=== PATIENT | female | born 1955 | race Caucasian/White ===

== ENCOUNTER 2017-09-05 20:28 | Emergency (ER) | payer MEDICARE, OTHER ==
[2017-09-05 21:22] LABS: CHLORIDE,CL 101 mmol/L (101-111); SODIUM,NA 140 mmol/L (135-145)
[2017-09-05] MEDS ORDERED: HYDROmorphone 1 MG/ML Syringe IVPUSH ONE (21:34)
[2017-09-05] MEDS ORDERED: Iopamidol 755 Mg/ML 100 ML Bottle IVPUSH ONE (21:34)
[2017-09-05] MEDS ORDERED: LORazepam 2 MG/ML Syringe IM ONE (21:37)
[2017-09-05 23:08] VITALS: BP 119/80
--- NOTE | 2017-09-05 23:20 | EDM.PDOC ---
ED HPI GENERAL MEDICAL PROBLEM - General Chief Complaint: Chest Pain Stated Complaint: CHEST PAIN. IN BY AMB Time Seen by Provider: 09/05/17 20:35 Source of Information: Reports: Patient, EMS History Limitations: Reports: No Limitations - History of Present Illness INITIAL COMMENTS - FREE TEXT/NARRATIVE: ED via [facility] with c/o severe back pain radiating to anterior chest. Notes back pain for past week and taking more pain medication than had been in few week prior. Patient hx spinal fusion T4-L1 in May. Denies SOB. no fever or chills. States today she was in [place] shopping all day and pain worsened while fixing supper. Did take 5mg Valim and 6 mg Dilaudid with out relief. Given nitro in ambulance without change in sx. Duration: Day(s):, Getting Worse Location: Reports: Back, Upper Extremity, Right Quality: Reports: Ache, Sharp Severity: Severe Worsens with: Reports: Breathing, Movement Chest Pain Score (Numeric/FACES): 6 - Related Data Allergies Allergy/AdvReac Type Severity Reaction Status Date / Time fenofibrate nanocrystallized Allergy Jaundice Verified 09/05/17 20:43 [From Tricor] fenofibrate,micronized Allergy Jaundice Verified 09/05/17 20:43 [From Tricor] indomethacin [From Indocin] Allergy Nausea and Verified 09/05/17 20:43 Vomiting indomethacin sodium Allergy Nausea and Verified 09/05/17 20:43 [From Indocin] Vomiting morphine Allergy Other Verified 09/05/17 20:43 nickel Allergy Rash Verified 09/05/17 20:43 paroxetine HCl [From Paxil] Allergy Rash Verified 09/05/17 20:43 Penicillins Allergy Hives Verified 09/05/17 20:43 phenobarbital Allergy Hives Verified 09/05/17 20:43 venlafaxine HCl Allergy Hypertensio Verified 09/05/17 20:43 [From Effexor] n Home Meds: Home Meds DULoxetine [Cymbalta] 60 mg PO DAILY 02/01/14 [History] Furosemide [Furosemide] 20 mg PO DAILY 02/01/14 [History] Gabapentin [Gabapentin] 600 mg PO TID 02/01/14 [History] Rosuvastatin Calcium [Crestor] 5 mg PO DAILY 02/01/14 [History] Acetaminophen [Acetaminophen Extra Strength] 1,000 mg PO DAILY MDD 3000 MG 10/06 [History] Aspirin [Halfprin] 81 mg PO DAILY 10/06/16 [History] Calcium Carbonate/Vitamin D3 [Calcium 500 + Vit D 400] 1 tab PO DAILY 10/06/16 [ History] Diazepam [Diazepam] 5 mg PO Q6H PRN 10/06/16 [History] Flaxseed Oil 1,000 mg PO DAILY 10/06/16 [History] HYDROmorphone [Dilaudid] 2 mg PO Q3H PRN 10/06/16 [History] Multivitamin [Multi-Day Vitamins] 1 tab PO DAILY 10/06/16 [History] Polyethylene Glycol 3350 [MiraLAX] 1 dose PO DAILY 10/06/16 [History] fentaNYL [Fentanyl] 1 patch TRDERM ASDIRECTED 10/06/16 [History] Past Medical History HEENT History: Reports: Impaired Vision Cardiovascular History: Reports: High Cholesterol Respiratory History: Reports: None Gastrointestinal History: Reports: Chronic Constipation Genitourinary History: Reports: Renal Calculus 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 Neurological History: Reports: Neuropathy, Peripheral, Seizure Psychiatric History: Reports: Anxiety, Depression Endocrine/Metabolic History: Reports: Obesity/BMI 30+ Hematologic History: Reports: None Immunologic History: Reports: None Oncologic (Cancer) History: Reports: None Dermatologic History: Reports: None - Infectious Disease History Infectious Disease History: Reports: Chicken Pox, Measles, Mumps - Past Surgical History Head Surgeries/Procedures: Reports: None Cardiovascular Surgical History: Reports: Other (See Below) Respiratory Surgical History: Reports: None GI Surgical History: Reports: Appendectomy, Colonoscopy, Hernia, Inguinal Female Surgical History: Reports: Hysterectomy, Salpingo-Oophorectomy Endocrine Surgical History: Reports: None Neurological Surgical History: Reports: Lumbar Spine, Spinal Fusion, Other (See Below) Musculoskeletal Surgical History: Reports: Carpal Tunnel, Knee Replacement, Other (See Below) Oncologic Surgical History: Reports: None Dermatological Surgical History: Reports: None Social & Family History - Family History Family Medical History: Noncontributory - Tobacco Use Smoking Status *Q: Never Smoker Used Tobacco, but Quit: No Second Hand Smoke Exposure: No - Caffeine Use Caffeine Use: Reports: Energy Drinks, Soda Other Caffeine Use: 2-3 CUPS AVERAGE DAILY - Alcohol Use Days Per Week of Alcohol Use: 0 - Recreational Drug Use Recreational Drug Use: No Drug Use in Last 12 Months: No ED ROS GENERAL - Review of Systems Review Of Systems: See Below Constitutional: Denies: Fever, Chills HEENT: Reports: No Symptoms Respiratory: Denies: Shortness of Breath Cardiovascular: Reports: Chest Pain. Denies: Dyspnea on Exertion Endocrine: Reports: No Symptoms GI/Abdominal: Reports: No Symptoms : Reports: No Symptoms Musculoskeletal: Reports: Shoulder Pain (right), Arm Pain (right), Back Pain Skin: Reports: No Symptoms Neurological: Reports: No Symptoms ED EXAM, GENERAL - Physical Exam Exam: See Below Exam Limited By: No Limitations General Appearance: Alert, Mild Distress (talkative but grimaces only with movement) Eye Exam: Bilateral Eye: EOMI Ears: Normal External Exam Nose: Normal Inspection Throat/Mouth: Normal Inspection Head: Atraumatic, Normocephalic, Other (alopecia) Neck: Normal Inspection, Full Range of Motion Respiratory/Chest: No Respiratory Distress, Lungs Clear, Normal Breath Sounds, Splinting Cardiovascular: Normal Peripheral Pulses, Regular Rate, Rhythm. No: No Edema ( trace pedal) GI/Abdominal: Normal Bowel Sounds, Soft Back Exam: Decreased Range of Motion, Muscle Spasm (right trapezius), Paraspinal Tenderness (upper) Extremities: Normal Inspection, Normal Range of Motion Neurological: Alert, Oriented, Normal Cognition, No Motor/Sensory Deficits Skin Exam: Warm, Dry, Intact, Wound/Incision (midline incision upper thoracic to low lumbar, healing intact) Course - Vital Signs Last Recorded V/S: Last Vital Signs Temp 98.9 F 09/05/17 22:30 Pulse 80 09/05/17 23:08 Resp 14 09/05/17 23:08 BP 119/80 09/05/17 23:08 Pulse Ox 98 09/05/17 23:08 - Orders/Labs/Meds Orders: Active Orders 24 hr Category Date Time Status EKG 12 Lead [EKG Documentation Completion] [RC] URGENT Care 09/05/17 20:58 Active CULTURE BLOOD [BC] Stat Lab 09/05/17 20:50 Received Labs: Laboratory Tests 09/05/17 09/05/17 09/05/17 Range/Units 20:50 20:50 20:50 WBC 9.0 (5.0-10.0) 10^3/uL RBC 4.21 (4.2-5.4) 10^6/uL Hgb 12.1 (12.0-16.0) g/dL Hct 37.6 (37.0-47.0) % MCV 89.3 (80-100) fL MCH 28.7 (27.0-34.0) pg MCHC 32.2 L (33.0-35.0) g/dL Plt Count 323 (150-450) 10^3/uL Neut % (Auto) 62.4 (42.2-75.2) % Lymph % (Auto) 26.8 (20.5-50.1) % Faulk % (Auto) 8.5 H (2-8) % Eos % (Auto) 1.9 (1.0-3.0) % Baso % (Auto) 0.4 (0.0-1.0) % D-Dimer, Quantitative (0-400) ng/mL Sodium 140 (135-145) mmol/L Potassium 3.7 (3.6-5.0) mmol/L Chloride 101 (101-111) mmol/L Carbon Dioxide 28.0 (21.0-31.0) mmol/L Anion Gap 14.7 BUN 15 (7-18) mg/dL Creatinine 0.8 (0.6-1.3) mg/dL Est Cr Clr Drug Dosing 61.35 mL/min Estimated GFR (MDRD) > 60 BUN/Creatinine Ratio 18.75 Glucose 92 (74-105) mg/dL Lactic Acid 1.1 (0.5-2.2) mmol/L Calcium 8.8 (8.4-10.2) mg/dl Total Bilirubin 0.6 (0.2-1.0) mg/dL AST 30 (10-42) IU/L ALT 18 (10-60) IU/L Alkaline Phosphatase 70 (42-121) IU/L CK-MB (CK-2) (0.4-4.7) ng/mL Troponin I < 0.02 (0.00-0.02) ng/ml Total Protein 6.6 L (6.7-8.2) g/dl Albumin 3.9 (3.2-5.5) g/dl Globulin 2.7 Albumin/Globulin Ratio 1.44 11/21/17 11/21/17 Range/Units 20:50 20:50 WBC (5.0-10.0) 10^3/uL RBC (4.2-5.4) 10^6/uL Hgb (12.0-16.0) g/dL Hct (37.0-47.0) % MCV (80-100) fL MCH (27.0-34.0) pg MCHC (33.0-35.0) g/dL Plt Count (150-450) 10^3/uL Neut % (Auto) (42.2-75.2) % Lymph % (Auto) (20.5-50.1) % Faulk % (Auto) (2-8) % Eos % (Auto) (1.0-3.0) % Baso % (Auto) (0.0-1.0) % D-Dimer, Quantitative 1030 H (0-400) ng/mL Sodium (135-145) mmol/L Potassium (3.6-5.0) mmol/L Chloride (101-111) mmol/L Carbon Dioxide (21.0-31.0) mmol/L Anion Gap BUN (7-18) mg/dL Creatinine (0.6-1.3) mg/dL Est Cr Clr Drug Dosing mL/min Estimated GFR (MDRD) BUN/Creatinine Ratio Glucose (74-105) mg/dL Lactic Acid (0.5-2.2) mmol/L Calcium (8.4-10.2) mg/dl Total Bilirubin (0.2-1.0) mg/dL AST (10-42) IU/L ALT (10-60) IU/L Alkaline Phosphatase (42-121) IU/L CK-MB (CK-2) 2.20 (0.4-4.7) ng/mL Troponin I (0.00-0.02) ng/ml Total Protein (6.7-8.2) g/dl Albumin (3.2-5.5) g/dl Globulin Albumin/Globulin Ratio Meds: Medications Discontinued Medications Generic Name Dose Route Start Last Admin Trade Name Freq PRN Reason Stop Dose Admin Hydromorphone HCl 1 mg 09/05/17 21:34 09/05/17 21:49 Dilaudid IVPUSH 09/05/17 21:35 1 mg ONETIME ONE Administration Iopamidol 100 ml 09/05/17 21:34 09/05/17 22:05 Isovue-370 (76%) IVPUSH 09/05/17 21:35 75 ml ONETIME ONE Administration Lorazepam 1 mg 09/05/17 21:37 09/05/17 21:48 Ativan IM 09/05/17 21:38 1 mg ONETIME ONE Administration - Radiology Interpretation Free Text/Narrative:: CT chest: No PE, slight right lower atelectasis. Right middle lobe with 4mm non calcified nodule - Re-Assessments/Exams Free Text/Narrative Re-Assessment/Exam: 09/06/17 02:09 Patients pain improved, resting. Mild discomfort with repositioning. Patient informed of testing results including nodule finding in lung. Instructed to follow up with PCP and discuss ongoing management and follow up. Patient has appointment scheduled on Monday. Patient reluctant to decrease activity. Instructed to minimize lifting and carrying grandaughter. Moderation and balance with rest and light activity to improve healing and decrease pain. Departure - Departure Time of Disposition: 23:10 Disposition: Home, Self-Care 01 Condition: Good Clinical Impression: Status post thoracic spinal fusion, Muscle spasm of back Instructions: Muscle Cramps and Spasms, [id number] Referrals: Lexi Pete PA [Primary Care Provider] - Forms: ED Department Discharge Additional Instructions: rest- light activity Continue current home medications may use heat or ice to upper back as needed No lifting Follow up with primary care this week Repeat chest Ct in one year or sooner if directed by your primary care provider - My Orders Last 24 Hours: My Active Orders 09/05/17 20:50 CULTURE BLOOD [BC] Stat 09/05/17 20:58 EKG 12 Lead [EKG Documentation Completion] [RC] URGENT - Assessment/Plan Last 24 Hours: My Active Orders 09/05/17 20:50 CULTURE BLOOD [BC] Stat 09/05/17 20:58 EKG 12 Lead [EKG Documentation Completion] [RC] URGENT
--- NOTE | 2017-09-14 13:24 | EKG ---
09/05/2017 - RHINA VAZQUEZ - EKG per my reading shows sinus rhythm at a rate of 66. MOD /[id number]
== END 2017-09-05 23:47 | disposition home or self-care (01) ==
LOC: DL.ED 20:28
DX: M62.830 Muscle spasm of back (principal); Z98.1 Arthrodesis status; E78.00 Pure hypercholesterolemia, unspecified; F32.9 Major depressive disorder, single episode, unspecified; Z79.82 Long term (current) use of aspirin; Z79.899 Other long term (current) drug therapy; Z88.0 Allergy status to penicillin; Z88.5 Allergy status to narcotic agent; Z88.8 Allergy status to other drugs, medicaments and biological substances; Z91.048 Other nonmedicinal substance allergy status
CPT/HCPCS: 36415; 71260; 80053; 82553; 83605; 84484; 85025; 85379; 87040; 93005; 93010; 96372; 96374; 99285; J1170; J2060; Q9967; 99284

== ENCOUNTER 2020-10-09 21:32 | Emergency (ER) | payer MEDICARE, OTHER ==
--- NOTE | 2020-10-09 21:53 | EDM.PDOC ---
ED HPI GENERAL MEDICAL PROBLEM - General Chief Complaint: Eye Problems Stated Complaint: LEFT EYE PAIN Time Seen by Provider: 10/09/20 21:50 Source of Information: Reports: Patient History Limitations: Reports: No Limitations - History of Present Illness INITIAL COMMENTS - FREE TEXT/NARRATIVE: noticed redness left lower eye tonight, was preparing dinner and cooking and had grand kids over. denies stress or straining. c/o some minor throbbing discomfort and no real viz problem. - Related Data Allergies Allergy/AdvReac Type Severity Reaction Status Date / Time fenofibrate nanocrystallized Allergy Jaundice Verified 09/05/17 20:43 [From Tricor] fenofibrate,micronized Allergy Jaundice Verified 09/05/17 20:43 [From Tricor] gentamicin Allergy Itching Verified 06/24/19 13:34 indomethacin [From Indocin] Allergy Nausea and Verified 09/05/17 20:43 Vomiting indomethacin sodium Allergy Nausea and Verified 09/05/17 20:43 [From Indocin] Vomiting morphine Allergy Other Verified 09/05/17 20:43 nickel Allergy Rash Verified 09/05/17 20:43 paroxetine HCl [From Paxil] Allergy Rash Verified 09/05/17 20:43 Penicillins Allergy Hives Verified 09/05/17 20:43 phenobarbital Allergy Hives Verified 09/05/17 20:43 venlafaxine HCl Allergy Hypertensio Verified 09/05/17 20:43 [From Effexor] n Home Meds: Home Meds DULoxetine [Cymbalta] 60 mg PO DAILY 02/01/14 [History] Furosemide 20 mg PO DAILY 02/01/14 [History] Gabapentin 600 mg PO TID 02/01/14 [History] Rosuvastatin Calcium [Crestor] 5 mg PO DAILY 02/01/14 [History] Acetaminophen [Acetaminophen Extra Strength] 1,000 mg PO DAILY MDD 3000 MG 10/06/16 [History] Aspirin [Halfprin] 81 mg PO DAILY 10/06/16 [History] Calcium Carbonate/Vitamin D3 [Calcium 500 + Vit D 400] 1 tab PO BID 10/06/16 [History] Flaxseed Oil 1,000 mg PO DAILY 10/06/16 [History] HYDROmorphone [Dilaudid] 2 mg PO Q3H PRN 10/06/16 [History] Multivitamin [Multi-Day Vitamins] 1 tab PO DAILY 10/06/16 [History] Polyethylene Glycol 3350 [MiraLAX] 1 dose PO DAILY 10/06/16 [History] diazePAM [Diazepam] 5 mg PO Q8HR PRN 10/06/16 [History] fentaNYL [Fentanyl] 1 patch TRDERM ASDIRECTED 10/06/16 [History] Cyclobenzaprine [Flexeril] 10 mg PO Q8HR PRN 06/24/19 [History] Potassium Chloride 20 meq PO DAILY 06/24/19 [History] Sennosides/Docusate Sodium [Senna-Docusate Sodium Tablet] 1 - 3 tab PO DAILY PRN 06/24/19 [History] Ubidecarenone [Coenzyme Q-10] 200 mg PO DAILY 06/24/19 [History] Past Medical History HEENT History: Reports: Impaired Vision Cardiovascular History: Reports: High Cholesterol Respiratory History: Reports: None Gastrointestinal History: Reports: Chronic Constipation Genitourinary History: Reports: Renal Calculus 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 Neurological History: Reports: Neuropathy, Peripheral, Seizure Psychiatric History: Reports: Anxiety, Depression Endocrine/Metabolic History: Reports: Obesity/BMI 30+ Hematologic History: Reports: None Immunologic History: Reports: None Oncologic (Cancer) History: Reports: None Dermatologic History: Reports: None - Infectious Disease History Infectious Disease History: Reports: Chicken Pox, Measles, Mumps - Past Surgical History Head Surgeries/Procedures: Reports: None Cardiovascular Surgical History: Reports: Other (See Below) Respiratory Surgical History: Reports: None GI Surgical History: Reports: Appendectomy, Colonoscopy, Hernia, Inguinal Female Surgical History: Reports: Hysterectomy, Salpingo-Oophorectomy Endocrine Surgical History: Reports: None Neurological Surgical History: Reports: Lumbar Spine, Spinal Fusion, Other (See Below) Musculoskeletal Surgical History: Reports: Carpal Tunnel, Knee Replacement, Other (See Below) Oncologic Surgical History: Reports: None Dermatological Surgical History: Reports: None Social & Family History - Family History Family Medical History: No Pertinent Family History - Caffeine Use Caffeine Use: Reports: Energy Drinks, Soda Other Caffeine Use: 2-3 CUPS AVERAGE DAILY ED ROS GENERAL - Review of Systems Review Of Systems: Comprehensive ROS is negative, except as noted in HPI. ED EXAM GENERAL W FULL EYE - Physical Exam Exam: See Below Exam Limited By: No Limitations General Appearance: Alert, WD/WN, No Apparent Distress Eye Exam: Bilateral Eye: PERRL (pupils ER @ 4mm) Visual Acuity (R) 20/: 20 Visual Acuity (L) 20/: 25 Eyelids: Bilateral: Normal Appearance Conjunctiva & Sclera: Left: Subconjuctival Hemorrhage Cornea Exam: Bilateral: Normal Appearance Extraocular Movements: Bilateral: Intact Pupillary Size: Bilateral: 4 mm Pupillary Reaction: Bilateral: Brisk Anterior Chamber: Bilateral: Normal Appearance Ears: Hearing Grossly Normal Throat/Mouth: Normal Voice, No Airway Compromise Head: Atraumatic Neck: Non-Tender, Full Range of Motion Respiratory/Chest: No Respiratory Distress Cardiovascular: Regular Rate, Rhythm GI/Abdominal: Soft, Non-Tender (Male) Exam: Deferred (Female) Exam: Deferred Rectal (Males) Exam: Deferred Rectal (Female) Exam: Deferred Back Exam: Full Range of Motion Extremities: Normal Range of Motion Neurological: Alert, Oriented, Normal Cognition, Normal Gait, No Motor/Sensory Deficits Psychiatric: Normal Affect, Normal Mood Skin Exam: Warm, Dry, Normal Color Lymphatic: No Adenopathy Departure - Departure Time of Disposition: 21:57 Disposition: Home, Self-Care 01 Condition: Good Clinical Impression: Subconjunctival hematoma Qualifiers: Laterality: left Qualified Code(s): H11.32 - Conjunctival hemorrhage, left eye - Discharge Information Instructions: Subconjunctival Hemorrhage Forms: ED Department Discharge Additional Instructions: 1) rest and avoid bending lifting straining nex t48 hours 2) see EYE CLINIC MONDAY IF NO SIGNIFICANT IMPROVEMENT 3) recheck sooner if there is any vision change or worsening pain 4) take tylenol as needed for discomfort
[2020-10-09 21:54] VITALS: BP 139/79; PULSE 76
== END 2020-10-09 22:05 | disposition home or self-care (01) ==
LOC: DL.ED 21:32
DX: H11.32 Conjunctival hemorrhage, left eye (principal); G62.9 Polyneuropathy, unspecified; R56.9 Unspecified convulsions; F41.9 Anxiety disorder, unspecified; F32.9 Major depressive disorder, single episode, unspecified; E78.00 Pure hypercholesterolemia, unspecified; E66.9 Obesity, unspecified; Z68.41 Body mass index [BMI] 40.0-44.9, adult; Z88.8 Allergy status to other drugs, medicaments and biological substances; Z88.1 Allergy status to other antibiotic agents; Z88.5 Allergy status to narcotic agent; Z91.048 Other nonmedicinal substance allergy status; Z88.0 Allergy status to penicillin; Z79.82 Long term (current) use of aspirin; Z79.899 Other long term (current) drug therapy
CPT/HCPCS: 99282